=== PATIENT | female | born 1940 | race Caucasian/White ===

== ENCOUNTER 2022-03-22 09:08 | Outpatient (CLI) | payer MEDICARE, SELFPAY ==
[2022-03-22 15:05] LABS: Albumin* 4.8 g/dL (3.3-5.0)
[2022-03-22 15:06] LABS: Chloride* 107 mmol/L (96-114); Potassium* 4.9 mmol/L (3.6-5.1); Sodium* 141 mmol/L (135-149)
[2022-03-22 15:08] LABS: Aspartate Amino Transferase* 24 U/L (12-35); Bilirubin Total* 0.6 mg/dL (0.1-1.5); Carbon Dioxide* 28 mmol/L (20-32); Cholesterol* 217 mg/dL (90-199); Creatinine* 0.9 mg/dL (0.5-1.5); Estimated Glomerular Filt Rate 65 ml/min; Total Protein* 7.7 g/dL (6.0-8.3)
[2022-03-22 15:09] LABS: Alanine Aminotransferase* 16 U/L (4-35); Alkaline Phosphatase* 42 U/L (40-150); Blood Urea Nitrogen* 22 mg/dL (7-30); Calcium* 10.2 mg/dL (8.4-10.6); Glucose* 100 mg/dL (60-115); HDL Cholesterol* 47 mg/dL (>=50); LDL Cholesterol Calculated 138 mg/dL (<100); Triglycerides* 159 mg/dL (40-149)
== END 2022-03-22 09:09 | disposition home or self-care (01) ==
PROVIDERS: PCP Physician Assistant Medical; Visit Provider Physician Assistant Medical
DX: I10 Essential (primary) hypertension (principal); N18.9 Chronic kidney disease, unspecified; E55.9 Vitamin D deficiency, unspecified; Z13.6 Encounter for screening for cardiovascular disorders
CPT/HCPCS: 80053; 80061

== ENCOUNTER 2022-06-22 11:52 | Outpatient (CLI) | payer MEDICARE, SELFPAY ==
--- NOTE | 2022-06-22 13:00 | CRLHL7_ITS ---
For Patients: As a result of the Cures Act, medical imaging exams and procedure reports are released immediately into your electronic medical record. You may view this report before your referring provider. If you have questions, please contact your health care provider. DXA BONE MINERAL DENSITY STUDY, 06/22/2022 Reason for exam: Postmenopausal status. Current height (inches): 65.0 Weight (lbs.): 220.0 Menopause age: 52 Ethnicity: White 1. Have you had a previous hip or vertebral fracture? No. 2. Have you had any fractures during your adult life which did not result from significant trauma (e.g., auto accident)? Yes. 3. Did either of your parents have a hip fracture? No. 4. Do you smoke? No. 5. Have you ever taken Glucocorticoids? No. 6. Do you have rheumatoid arthritis? No. 7. Do you have secondary osteoporosis? No. 8. Do you drink 3 or more alcoholic drinks per day? No. 9. Are you being treated for osteoporosis? No. 10. Have you ever taken any of the following medications: Actonel, Evista, Fosamax, Miacalcin, Reclast, Boniva, Forteo, HRT (i.e., estrogen/hormone therapy), Protelos, Prolia, Vitamin D, Calcium, other ??? please specify. ANSWER: Yes; vitamin D, HRT, calcium. 11. Do you have any of the following medical conditions: Anorexia or bulimia, asthma or emphysema, end stage renal disease, hyperparathyroidism, any seizure disorders, cancer, inflammatory bowel diseases, hysterectomy, other ??? please specify. ANSWER: No. 12. What was your maximum height (inches)? 66.5. 13. Do you perform weightbearing exercise regularly? No. 14. Do you regularly consume dairy products? Yes. 15. Do you drink caffeinated beverages? Yes. 16. At what age did your period start? 13. 17. Are you premenopausal? No. 18. How many full-term pregnancies have you had? 2. 19. Have you ever missed your period for more than 6 months in a row (not including or menopause)? No. TECHNIQUE: Bone mineral density study was performed using the [employer]. FINDINGS: The results of the study expressed as bone mineral density (BMD) are as follows: Lumbar Spine L1 to L4: BMD: 1.049 g/cm2. T-score: 0.0. Z-score: 2.7. Neck Left: BMD: 0.763 g/cm2. T-score: -0.8. Z-score: 1.5. Right: BMD: 0.722 g/cm2. T-score: -1.1. Z-score: 1.2. Total Left: BMD: 0.890 g/cm2. T-score: -0.4. Z-score: 1.6. Right: BMD: 0.850 g/cm2. T-score: -0.8. Z-score: 1.3. IMPRESSION: Osteopenia. FRAX 10-year Fracture Risk Major Osteoporotic Fracture: 16% Hip Fracture: 2.7% Reported Risk Factors: [place] () Neck BMD = 0.722, BMI = 36.6, previous fracture. ELROY ROMERO M.D. Diagnostic Radiologist [email or web address] Transcribed: 1:[address]/Dictated by: Elroy Romero MD @ 06/22/2022 1:08:00 PM (Electronically Signed)
--- NOTE | 2022-06-22 13:40 | CRLHL7_ITS ---
For Patients: As a result of the Century Cures Act, medical imaging exams and procedure reports are released immediately into your electronic medical record. You may view this report before your referring provider. If you have questions, please contact your health care provider. BILATERAL SCREENING MAMMOGRAM WITH COMPUTER-AIDED DETECTION TECHNIQUE: CC and MLO views were obtained. These mammographic images have been obtained using full-field digital technique. These mammographic images were interpreted with the benefit of computer-aided detection. COMPARISON FILM: No priors available. FINDINGS: The breasts are almost entirely fatty IMPRESSION: There is no radiographic evidence for malignancy. ASSESSMENT: BI-RADS Category 2: Benign RECOMMENDATION: Routine screening mammogram in 1 year. A lay language report of this examination will be provided to the patient. Tank Wilson M.D. Diagnostic/Nuclear Medicine Radiologist [email or web address] CHRISTOPH/Dictated by: Tank Wilson MD @ 07/04/2022 10:37:00 AM (Electronically Signed)
== END 2022-06-22 11:53 | disposition home or self-care (01) ==
LOC: RAD 11:54
PROVIDERS: PCP Physician Assistant Medical; Visit Provider Physician Assistant Medical
DX: Z12.31 Encounter for screening mammogram for malignant neoplasm of breast (principal); Z78.0 Asymptomatic menopausal state; M85.89 Other specified disorders of bone density and structure, multiple sites
CPT/HCPCS: 77067; 77080

== ENCOUNTER 2023-07-06 08:28 | Outpatient (CLI) | payer MEDICARE, SELFPAY | END 2023-07-06 08:29 | disposition home or self-care (01) | LOC: NFLDREF 07-21 13:11 | PROVIDERS: PCP Physician Assistant Medical; Referring Provider Physician Assistant Medical; Visit Provider Physician Assistant Medical | DX: I10 Essential (primary) hypertension (principal); N18.30 Chronic kidney disease, stage 3 unspecified; G62.9 Polyneuropathy, unspecified; Z52.4 Kidney donor | CPT/HCPCS: 80053; 80061; 82607; 82728; 84443 ==

== ENCOUNTER 2023-08-15 08:22 | Outpatient (CLI) | payer MEDICARE, SELFPAY | END 2023-08-15 08:23 | disposition home or self-care (01) | LOC: NFLDREF 08-16 11:18 | PROVIDERS: PCP Physician Assistant Medical; Referring Provider Physician Assistant Medical; Visit Provider Physician Assistant Medical | DX: R79.89 Other specified abnormal findings of blood chemistry (principal) | CPT/HCPCS: 82728 ==

== ENCOUNTER 2023-09-12 09:30 | Outpatient (CLI) | payer MEDICARE, SELFPAY | END 2023-09-12 09:31 | disposition home or self-care (01) | LOC: FRMREF 09:31 | PROVIDERS: PCP Physician Assistant Medical; Visit Provider Physician Assistant Medical | DX: R79.89 Other specified abnormal findings of blood chemistry (principal) | CPT/HCPCS: 82728 ==

== ENCOUNTER 2023-11-16 14:17 | Outpatient (CLI) | payer MEDICARE, SELFPAY ==
--- NOTE | 2023-11-16 15:00 | CRLHL7_ITS ---
For Patients: As a result of the Century Cures Act, medical imaging exams and procedure reports are released immediately into your electronic medical record. You may view this report before your referring provider. If you have questions, please contact your health care provider. INDICATION: Elevated ferritin level COMPARISON: none TECHNIQUE: Real time hilliard scale imaging and color Doppler analysis was performed of the right upper quadrant. FINDINGS: Anechoic cyst within the left hepatic lobe measures 2.3 x 2.5 x 2.1 cm. No suspicious intrahepatic mass. There is a normal appearance of the hepatic IVC and proximal abdominal aorta. There is no evidence of ascites. The gallbladder is of normal size and there is no evidence of intraluminal stones or sludge. The gallbladder wall measures 1.5 mm in thickness. The common bile duct is of normal size and measures 4.1 mm in diameter at the level of the mike hepatis. The pancreas appears normal. There is no evidence of a stone or hydronephrosis within the right kidney. The right kidney measures 12.9 cm in length. IMPRESSION: Incidental intrahepatic cyst. The remainder of the examination is unremarkable. Dictated by Elroy Lanier MD @ 11/18/2023 7:28:29 PM (Electronically Signed)
== END 2023-11-16 14:18 | disposition home or self-care (01) ==
LOC: US 14:18
PROVIDERS: PCP Physician Assistant Medical; Visit Provider Physician Assistant Medical
DX: R79.89 Other specified abnormal findings of blood chemistry (principal); K76.89 Other specified diseases of liver
CPT/HCPCS: 76705

== ENCOUNTER 2024-06-24 07:28 | Outpatient (CLI) | payer MEDICARE, SELFPAY | END 2024-06-24 07:29 | disposition home or self-care (01) | LOC: NFLDREF 06-26 06:24 | PROVIDERS: PCP Physician Assistant Medical; Referring Provider Physician Assistant Medical; Visit Provider Physician Assistant Medical | DX: I10 Essential (primary) hypertension (principal); E55.9 Vitamin D deficiency, unspecified; R79.89 Other specified abnormal findings of blood chemistry; Z13.29 Encounter for screening for other suspected endocrine disorder; Z13.220 Encounter for screening for lipoid disorders; Z13.79 Encounter for other screening for genetic and chromosomal anomalies | CPT/HCPCS: 80053; 80061; 81256; 82306; 82728; 84443 ==

== ENCOUNTER 2024-07-17 09:38 | Outpatient (CLI) | payer MEDICARE, SELFPAY | END 2024-07-17 09:39 | disposition home or self-care (01) | LOC: NFLDREF 07-20 08:28 | PROVIDERS: PCP Physician Assistant Medical; Referring Provider Physician Assistant Medical; Visit Provider Physician Assistant Medical | DX: N30.00 Acute cystitis without hematuria (principal) | CPT/HCPCS: 87086 ==

== ENCOUNTER 2024-08-14 13:09 | Outpatient (CLI) | payer MEDICARE, SELFPAY ==
--- NOTE | 2024-08-14 13:30 | CRLHL7_ITS ---
For Patients: As a result of the Century Cures Act, medical imaging exams and procedure reports are released immediately into your electronic medical record. You may view this report before your referring provider. If you have questions, please contact your health care provider. XR DXA Bone Mineral Density (BMD) Reason for exam: Asymptomatic menopausal state. Current height (in): 65. Weight (lb): 220. Menopause age: 52. Ethnicity: White. 1. Have you had a previous hip or vertebral fracture? No. 2. Have you had any fractures during your adult life which did not result from significant trauma (e.g., auto accident)? Yes. 3. Did either of your parents have a hip fracture? No. 4. Do you smoke? No. 5. Have you ever taken Glucocorticoids? No. 6. Do you have rheumatoid arthritis? No. 7. Do you have secondary osteoporosis? No. 8. Do you drink 3 or more alcoholic drinks per day? No. 9. Are you being treated for osteoporosis? No. 10. Have you ever taken any of the following medications: Actonel, Evista, Fosamax, Miacalcin, Reclast, Boniva, Forteo, HRT (i.e. estrogen/hormone therapy), Protelos, Prolia, Vitamin D, Calcium, other ??? please specify. ANSWER: Yes, vitamin D, Eliquis, calcium. 11. Do you have any of the following medical conditions: Anorexia or bulimia, asthma or emphysema, end stage renal disease, hyperparathyroidism, any seizure disorders, cancer, inflammatory bowel diseases, hysterectomy, other ??? please specify. ANSWER: No. 12. What was your maximum height (inches)? 66.5. 13. Do you perform weight bearing exercise regularly? No. 14. Do you regularly consume dairy products? Yes. 15. Do you drink caffeinated beverages? Yes. 16. At what age did your period start? 13. 17. Are you premenopausal? No. 18. How many full term pregnancies have you had? 2. 19. Have you ever missed your period for more than 6 months in a row (not including or menopause)? No. TECHNIQUE: Bone mineral density study was performed using the [employer]. FINDINGS: The results of the study expressed as bone mineral density (BMD) are as follows: Lumbar spine L1 to L4: BMD: 1.078 g/cm2. T-score: 0.3. Z-score: 3.0. Neck Left: BMD: 0.728 g/cm2. T-score: -1.1. Z-score: 1.3. Right: BMD: 0.758 g/cm2. T-score: -0.8. Z-score: 1.6. Total Left: BMD: 0.858 g/cm2. T-score: -0.7. Z-score: 1.5. Right: BMD: 0.869 g/cm2. T-score: -0.6. Z-score: 1.6. IMPRESSION: Osteopenia. *Comparison exams done prior to 10/2019 were performed on different unit, [employer]. COMPARISON: Compared with scan of 06/22/2022, the bone mineral density has increased by 2.7 percent at the spine and decreased by 0.8 percent at the hip. FRAX 10-year Fracture Risk Major Osteoporotic Fracture: 16 percent Hip Fracture: 3.0 percent Reported Risk Factors: [place] () Neck BMD=0.728, BMI=36.6, previous fracture Elroy Lanier M.D. Diagnostic Radiologist [email or web address] SONDRA/sayra / bM/Dictated by: Elroy Lanier MD @ 08/14/2024 3:25:00 PM (Electronically Signed)
== END 2024-08-14 13:10 | disposition home or self-care (01) ==
LOC: RAD 13:10
PROVIDERS: PCP Physician Assistant Medical; Visit Provider Physician Assistant Medical
DX: Z78.0 Asymptomatic menopausal state (principal); M85.89 Other specified disorders of bone density and structure, multiple sites
CPT/HCPCS: 77080